=== PATIENT | male | born 1935 | race Caucasian/White ===

== ENCOUNTER 2016-12-17 14:53 | Emergency (ER) | payer OTHER ==
[2016-12-17] MEDS ORDERED: ONDANSETRON 4 MG VIAL ONE (16:12)
[2016-12-17] MEDS ORDERED: MORPHINE 4 MG/ML SYR ONE (16:13)
[2016-12-17] MEDS ORDERED: SODIUM CHLORIDE 0.9% 1,000 ML ONE (18:04)
[2016-12-17] MEDS ORDERED: DILAUDID 1 MG/ML AMP ONE (18:10)
== END 2016-12-17 19:53 | disposition home or self-care (01) ==
LOC: ER 15:30
DX: S39.012A Strain of muscle, fascia and tendon of lower back, initial encounter (principal); M51.16 Intervertebral disc disorders with radiculopathy, lumbar region
CPT/HCPCS: 36415; 72100; 74176; 80053; 81001; 83690; 85025; 96361; 96374; 96375; 99285; J1170; J2270; J2405